=== PATIENT | female | born 2000 | race African-American/Black ===

== ENCOUNTER 2024-02-24 16:08 | Emergency (ER) | payer OTHER, BC, SELFPAY ==
[2024-02-24 16:23] VITALS: BP 118/72; PULSE 65; RESP 20; TEMP 36.5; O2SAT 100
[2024-02-24 16:35] LABS: EDUAAPPEAR Cloudy; EDUABILI Negative; EDUABLOOD 2+; EDUACOLOR1 Yellow; EDUAGLUCOSE Negative; EDUAKETONE Negative; EDUALEUKO Negative; EDUANITRATE Negative; EDUAPROTEIN Negative
--- NOTE | 2024-02-24 16:49 | ED.FEMALEGU ---
HPI - Female Genitourinary General Chief complaint: Urogenital-Female Stated complaint: lower abdominal pain urinary/vaginal issue Time Seen by Provider: 02/24/24 16:49 Source: patient Mode of arrival: ambulatory Limitations: no limitations History of Present Illness HPI Narrative: 23-year-old female presents with complaint of forman vaginal discharge, odor, urinary frequency, abdominal pressure. Patient concerned for bacterial vaginosis. Reports similar symptoms the last time she had a. No dysuria or urgency. No concern for STIs. Finished her period 2 days ago. All systems reviewed and negative except as noted above. Related Data Home Medications Medication Instructions Recorded Confirmed aripiprazole 10 mg tablet 30 mg PO DAILY 02/24/24 02/24/24 gabapentin 100 mg capsule 100 mg PO TID 02/24/24 02/24/24 quetiapine 50 mg tablet 50 mg PO DAILY 02/24/24 02/24/24 Allergies Allergy/AdvReac Type Severity Reaction Status Date / Time No Known Allergies Allergy Unknown Verified 02/24/24 16:14 Review of Systems Review of Systems: CONSTITUTIONAL: Denies fever, chills, or sweats. EYES: Denies visual changes, redness, or discharge. ENT: Denies rhinorrhea, congestion, sore throat, or otalgia. CARDIOVASCULAR: Denies chest pain, palpitations, or edema. RESPIRATORY: Denies cough or dyspnea. GASTROINTESTINAL: Denies abdominal pain, nausea, vomiting, or diarrhea. GENITOURINARY: Denies dysuria or hematuria. Reports for a vaginal discharge with odor. Reports frequency. SKIN: Denies rash or itching. MUSCULOSKELETAL: Denies back pain, joint pain, or myalgia. NEUROLOGIC: Denies headache, numbness, or weakness. PSYCHIATRIC: Denies anxiety or depression. All other systems reviewed are negative, except as documented in HPI. PMFSH Social History Social History Smoking status: Never smoker Alcohol intake: never Comments At time of signature, agree with nursing past medical, surgical, social and family history. There is no relevant family history pertinent to the presenting complaint. Exam Narrative: GENERAL: This is a well-nourished, well-developed patient, in no apparent distress. HEAD: normocephalic, atraumatic. EYES: PERRL. Sclera clear/white. Vision is grossly intact. EARS: External ears normal NOSE: External nose normal NECK: Neck supple, non-tender without lymphadenopathy, masses or thyromegaly. CARDIOVASCULAR: Regular rate and rhythm without murmurs, gallops, or rubs. RESPIRATORY: Clear to auscultation. Breath sounds equal bilaterally. No wheezes, rales, or rhonchi. GASTROINTESTINAL: Abdomen soft, non-tender, nondistended. Bowel sounds are active. No hepato-splenomegaly, or palpable masses. No guarding. SKIN: warm, Dry, intact with no suspicious lesions or rash, good texture and turgor. NEURO: awake, alert, and oriented to person, place and time. There were no obvious focal neurologic abnormalities. EXTREMITIES: No joint tenderness, effusion, or edema noted. Course Course Level of Care: Express Care Visit Vital Signs Vital signs: Vital Signs Temperature 36.5 C 02/24/24 16:23 Pulse Rate 65 02/24/24 16:23 Respiratory Rate 20 02/24/24 16:23 Blood Pressure 118/72 02/24/24 16:23 Pulse Oximetry 100 02/24/24 16:23 Oxygen Delivery Room Air 02/24/24 16:23 Temperature 36.5 C 02/24/24 16:23 Pulse Rate 65 02/24/24 16:23 Respiratory Rate 20 02/24/24 16:23 Blood Pressure 118/72 02/24/24 16:23 Pulse Oximetry 100 02/24/24 16:23 Oxygen Delivery Room Air 02/24/24 16:23 Reviewed MDM - Female Genitourinary MDM Narrative Medical decision making narrative: patient was offered testing for bacterial vaginosis and declined. Would prefer to just be prescribed medication to treat it. Urinalysis 2+ blood most likely from recent. urine culture ordered to further evaluate patient's symptoms, patient agrees. Patient is aware of diagnosis, understands and agrees
== END 2024-02-24 17:00 | disposition home or self-care (01) ==
PROVIDERS: Emergency Provider Nurse Practitioner Family
DX: N89.8 Other specified noninflammatory disorders of vagina (principal); B96.20 Unspecified Escherichia coli [E. coli] as the cause of diseases classified elsewhere
CPT/HCPCS: 81003; 87077; 87086; 87088; 87186; 99213; G0463